=== PATIENT | female | born 1965 | race Caucasian/White ===

== ENCOUNTER 2016-10-04 16:15 | Emergency (ER) | payer OTHER ==
--- NOTE | 2016-10-04 19:04 | ED ---
General Adult HPI - General Chief complaint: Extremity Problem,Nontraumatic Stated complaint: leg pain Time Seen by Provider: 10/04/16 18:52 Source: patient, RN notes reviewed Mode of arrival: ambulatory Limitations: no limitations - History of Present Illness Initial comments: Chief complaint history of present illness a 51-year-old female reports that twice over the last week she had little twinges of discomfort to her left mid calf area. Today while walking down the street she said she felt and heard a snap and complains of pain between both gastroc heads in the mid left calf. No swelling no ecchymosis. No pain with dorsiflexion of the ankle. No ecchymosis neurovascular status was intact no pain to the knee. - Related Data Home Medications Medication Instructions Recorded Confirmed Loratadine [Claritin] 10 mg PO DAILY 01/07/16 10/04/16 Pantoprazole [Protonix] 40 mg PO DAILY 01/07/16 10/04/16 buPROPion SR [Wellbutrin Sr] 150 mg PO BID 01/07/16 10/04/16 Albuterol Sulfate [Proair Hfa] 1 - 2 puff INHALATION Q6H PRN 01/19/16 10/04/16 Ibuprofen [Motrin] 800 mg PO TID PRN 01/19/16 10/04/16 PARoxetine [Paxil] 20 mg PO DAILY 08/25/16 10/04/16 traZODone HCL 200 mg PO HS 08/25/16 10/04/16 Previous Rx's Medication Instructions Recorded Ibuprofen [Motrin] 600 mg PO Q6HR PRN #20 tab 10/04/16 Allergies Allergy/AdvReac Type Severity Reaction Status Date / Time captopril Allergy Rash/Hives Verified 10/04/16 19:26 metoprolol Allergy Rash/Hives Verified 10/04/16 19:26 Review of Systems ROS Statement: Those systems with pertinent positive or pertinent negative responses have been documented in the HPI. Review of systems denying any headache chest pain shows breath GI/ problems. Only that as noted in the chief complaint. All systems were otherwise reviewed. Past medical problems GERD, pneumonia in the past varicose veins and COPD. The patient's surgeries surgery as well as right carpal tunnel to the extraction. Family history includes cancers of: 1 esophagus and ostomy. Diabetes. Patient has ALLERGIES to captopril and metoprolol. She states she no longer takes any medications for high blood pressure. The patient does smoke strongly encouraged stop denies alcohol use patient states she's been free of alcohol for 1 year states she's not alcoholic. ROS Other: All systems not noted in ROS Statement are negative. Past Medical History Past Medical History: COPD, GERD/Reflux, Pneumonia Additional Past Medical History / Comment(s): varicose veins, History of Any Multi-Drug Resistant Organisms: None Reported Past Surgical History: No Surgical Hx Reported Additional Past Surgical History / Comment(s): oral surgery Past Anesthesia/Blood Transfusion Reactions: Motion Sickness Past Psychological History: Anxiety, Depression Smoking Status: Current every day smoker Past Alcohol Use History: None Reported Additional Past Alcohol Use History / Comment(s): smokes 1 1/2 PPD since age 18 Past Drug Use History: None Reported - Past Family History Brother(s) Family Medical History: Cancer Father Family Medical History: Cancer General Exam - General Exam Comments Initial Comments: General: The patient is awake and alert, complaining of pain to her left mid calf. Vital signs are temperature 90.0 pulse 64 respiratory rate 18 pulse ox 99% room air blood pressure 139/64. Elevated systolic noted patient will be referred back to her family physician in next 1-2 weeks. Eye: Pupils are equal, , extra-ocular movements are intact; there is normal conjunctiva bilaterally. No signs of icterus. Ears, nose, mouth and throat: There are moist mucous membranes Neck: The neck is supple, there is no tenderness Cardiovascular: There is a regular rate and rhythm. No murmur, rub or gallop is appreciated. Respiratory: Lungs are clear to auscultation, respirations are non-labored, breath sounds are equal. No wheezes, stridor, rales, or rhonchi. Back: There is no tenderness to palpation in the midline. There is no obvious deformity. Musculoskeletal: All extremities normal except for discomfort to the mid left calf and negative Homans sign. No swelling or palpable lumps or irregularities. Achilles tendon is intact without pain. No vascular status of foot is intact. No pain with manipulation of the knee. No evidence of Jordan's cyst. Neurological: No neuro deficits Skin: No ecchymosis Limitations: no limitations Course Vital Signs 10/04/16 10/04/16 16:52 19:19 Temperature 98.0 F 97.5 F L Pulse Rate 64 84 Respiratory 18 16 Rate Blood Pressure 139/64 127/72 O2 Sat by Pulse 99 98 Oximetry Medical Decision Making - Medical Decision Making Tray of the left tib-fib negative for any acute bony irregularity. There is a few small healed chips off the distal fibula. Awaiting radiologist's final impression. The patient will be placed on ibuprofen for pain told ice the area follow-up with family physician as needed. Off work tonight Disposition Clinical Impression: Sprain of left lower leg Disposition: HOME SELF-CARE Condition: Good Instructions: Sprain (ED) Additional Instructions: Ice elevate, ibuprofen for pain Prescriptions: Ibuprofen [Motrin] 600 mg PO Q6HR PRN #20 tab PRN Reason: Pain Time of Disposition: 20:12
--- NOTE | 2016-10-04 19:18 | XR ---
EXAMINATION TYPE: XR tibia fibula LT DATE OF EXAM: 10/04/2016 7:14 PM CLINICAL HISTORY: pain TECHNIQUE: AP and lateral images of the left tibia and fibula are obtained. COMPARISON: None. FINDINGS: There is no acute fracture/dislocation evident. The joint spaces appear within normal lópez its. The overlying soft tissue appears unremarkable. IMPRESSION: There is no acute fracture or dislocation seen. ICD 10 NO FRACTURE, INITIAL EVALUATION
[2016-10-04 20:23] VITALS: BP 160/79; PULSE 58; RESP 18; TEMP 97.9
== END 2016-10-04 20:23 | disposition home or self-care (01) ==
LOC: EC 16:15
DX: S86.812A Strain of other muscle(s) and tendon(s) at lower leg level, left leg, initial encounter (principal); K21.9 Gastro-esophageal reflux disease without esophagitis; F32.9 Major depressive disorder, single episode, unspecified; F41.9 Anxiety disorder, unspecified; J44.9 Chronic obstructive pulmonary disease, unspecified; F17.200 Nicotine dependence, unspecified, uncomplicated; X58.XXXA Exposure to other specified factors, initial encounter; Y93.01 Activity, walking, marching and hiking; Y92.410 Unspecified street and highway as the place of occurrence of the external cause; Z88.8 Allergy status to other drugs, medicaments and biological substances; Z79.899 Other long term (current) drug therapy
CPT/HCPCS: 99283

== ENCOUNTER 2016-10-09 13:50 | Emergency (ER) | payer OTHER ==
[2016-10-09 14:25] VITALS: BP 149/67; PULSE 54; RESP 18; TEMP 98.8
--- NOTE | 2016-10-09 15:27 | ED ---
General Adult HPI - General Chief complaint: Extremity Injury, Lower Stated complaint: Leg Pain Time Seen by Provider: 10/09/16 14:30 Source: patient, RN notes reviewed Mode of arrival: ambulatory Limitations: no limitations - History of Present Illness Initial comments: Patient is a 51-year-old feel presenting to the with chief complaint of left calf pain. Patient reports that she was seen in the proximally one week ago and was told to rest, ice, and elevate leg after she received x-rays which were negative. Patient reports that she hasn't been taking anti-inflammatory medications however she still notices increased pain. Patient reports that the pain is worse with plantar and dorsiflexion. She states that all her pain started to occur after she twisted her leg and felt a twinge since then. Patient denies any specific point of tenderness just diffuse calf pain. She also reports she's noticed some swelling over both extremities but slightly more in the left calf. She denies any history of blood clots. She denies any chest pain or shortness of breath. She denies any redness to the leg. She states that she is able to ambulate however she notices the pain is worse when she has to raise up on her toes.Patient denies any recent fever, chills, shortness of breath, chest pain, back pain, abdominal pain, nausea vomiting, numbness or tingling, dysuria or hematuria, constipation or diarrhea, headaches or visual changes, or any other current symptoms - Related Data Home Medications Medication Instructions Recorded Confirmed Loratadine [Claritin] 10 mg PO DAILY 01/07/16 10/09/16 Pantoprazole [Protonix] 40 mg PO DAILY 01/07/16 10/09/16 buPROPion SR [Wellbutrin Sr] 150 mg PO BID 01/07/16 10/09/16 Albuterol Sulfate [Proair Hfa] 1 - 2 puff INHALATION RT-Q6H PRN 01/19/16 Ibuprofen [Motrin] 800 mg PO Q8H PRN 01/19/16 10/09/16 PARoxetine [Paxil] 20 mg PO DAILY 08/25/16 10/09/16 traZODone HCL 200 mg PO HS 08/25/16 10/09/16 Previous Rx's Medication Instructions Recorded Naproxen 500 mg PO Q12HR #15 tab 10/09/16 Allergies Allergy/AdvReac Type Severity Reaction Status Date / Time captopril Allergy Rash/Hives Verified 10/09/16 14:47 metoprolol Allergy Rash/Hives Verified 10/09/16 14:47 Review of Systems ROS Statement: Those systems with pertinent positive or pertinent negative responses have been documented in the HPI. ROS Other: All systems not noted in ROS Statement are negative. Past Medical History Past Medical History: COPD, GERD/Reflux, Pneumonia Additional Past Medical History / Comment(s): varicose veins, History of Any Multi-Drug Resistant Organisms: None Reported Past Surgical History: No Surgical Hx Reported, Orthopedic Surgery Additional Past Surgical History / Comment(s): oral surgery carpel tunnel surg Past Anesthesia/Blood Transfusion Reactions: Motion Sickness Past Psychological History: Anxiety, Depression Smoking Status: Current every day smoker Past Alcohol Use History: None Reported Additional Past Alcohol Use History / Comment(s): smokes 1 1/2 PPD since age 18 Past Drug Use History: None Reported - Past Family History Brother(s) Family Medical History: Cancer Father Family Medical History: Cancer General Exam - General Exam Comments Initial Comments: She is a pleasant 51-year-old female. She is on appear to be any acute distress. Limitations: no limitations General appearance: alert, in no apparent distress Head exam: Present: atraumatic, normocephalic, normal inspection Eye exam: Present: normal appearance, PERRL, EOMI. Absent: scleral icterus, conjunctival injection, periorbital swelling ENT exam: Present: normal exam, mucous membranes moist Neck exam: Present: normal inspection. Absent: tenderness, meningismus, lymphadenopathy Respiratory exam: Present: normal lung sounds bilaterally. Absent: respiratory distress, wheezes, rales, rhonchi, stridor Cardiovascular Exam: Present: regular rate, normal rhythm, normal heart sounds. Absent: systolic murmur, diastolic murmur, rubs, gallop, clicks GI/Abdominal exam: Present: soft, normal bowel sounds. Absent: distended, tenderness, guarding, rebound, rigid Extremities exam: Present: normal inspection, full ROM, normal capillary refill. Absent: tenderness, pedal edema, joint swelling, calf tenderness Left Upper Leg exam: Present: normal inspection, full ROM Knee exam: Present: normal inspection, full ROM Lower Leg exam: Present: normal inspection, full ROM, tenderness (Patient reports tenderness over the gastrocnemius muscle. ) Back exam: Present: normal inspection Course Vital Signs 10/09/16 14:21 Temperature 98.8 F Pulse Rate 54 L Respiratory 18 Rate Blood Pressure 149/67 O2 Sat by Pulse 97 Oximetry Medical Decision Making - Medical Decision Making Louis is a 51-year-old female presenting to the with chief complaint of left calf pain for approximately one week after she finished that after twisting it on a curb. X-rays were done at that time and showed no acute fracture abnormality. Ultrasound was done today given patient stated that she has some increased swelling over her leg. Ultrasound is negative for DVT. Patient has been instructed to follow-up with orthopedic physician. Patient instructed to rest, ice, and elevate extremity. To wear compression stockings as well. Patient understands treatment plan will comply. Return parameters were discussed. - Radiology Data Radiology results: report reviewed Her son was negative for DVT. There is evidence of small fluid collection over the calf which would be considered for an MRI follow-up. Disposition Clinical Impression: Calf pain, Sprain of left lower leg Disposition: HOME SELF-CARE Condition: Good Instructions: Leg Sprain (ED) Additional Instructions: Patient instructed to keep leg and Alvaro wrap as well as icing. Compress, elevate the extremity. Do passive stretching. Follow-up with orthopedic if symptoms continue to persist. Return to the [facility] if any alarming signs or symptoms occur. Prescriptions: Naproxen 500 mg PO Q12HR #15 tab Referrals: Kelle Baltazar DO [Primary Care Provider] - 1-2 days Garth Merchant MD [STAFF PHYSICIAN] - 1-2 days Time of Disposition: 15:40
--- NOTE | 2016-10-09 15:34 | US ---
EXAMINATION TYPE: US venous Doppler duplex LE LT DATE OF EXAM: 10/09/2016 3:14 PM COMPARISON: US on PACS CLINICAL HISTORY: Pain x 1 week at left medial calf after running across street and felt pulling sens ation. SIDE PERFORMED: Left VESSELS IMAGED: Common Femoral Vein Deep Femoral Vein Greater Saphenous Vein * Femoral Vein Popliteal Vein Small Saphenous Vein * Proximal Calf Veins (* superficial vessels) Findings: Left Leg: Negative for DVT. Fluid area = 1.9 x 0.9 x 0.3cm is noted medial mid calf at muscle level at patient's c/o pain IMPRESSION: 1. No evidence of DVT. 2. Small fluid collection medial aspect of the calf. Finding nonspecific consider MRI follow-up.
== END 2016-10-09 16:06 | disposition home or self-care (01) ==
LOC: EC 13:50
DX: S86.812D Strain of other muscle(s) and tendon(s) at lower leg level, left leg, subsequent encounter (principal); M79.1 Myalgia; X50.1XXD Overexertion from prolonged static or awkward postures, subsequent encounter; J44.9 Chronic obstructive pulmonary disease, unspecified; K21.9 Gastro-esophageal reflux disease without esophagitis; M79.89 Other specified soft tissue disorders; Z79.899 Other long term (current) drug therapy; Z88.8 Allergy status to other drugs, medicaments and biological substances; F17.210 Nicotine dependence, cigarettes, uncomplicated
CPT/HCPCS: 99283

== ENCOUNTER 2016-10-30 12:17 | Day surgery (SDC) | payer OTHER ==
[2016-10-25 11:59] VITALS: BMI 29.2
[~2016-10-30 12:17] MED LIST: FAMOTIDINE 20 MG/2 ML VIAL IV PRN; HYDROmorphone 1 MG/ML 1 ML SYRINGE IVP PRN; LACTATED RINGERS 1,000 ML IV SCH; LIDOCAINE 1% 20 ML VIAL (10MG/ML) FOR IV START INTRADERMA PRN; MIDAZOLAM 2 MG/2 ML VIAL IV PRN; ONDANSETRON 4 MG/2 ML VIAL IVP PRN; Pre Op ABX Message 1 EACH MISC MISCELLANE ONE
[2016-10-30 13:21] VITALS: RESP 16; TEMP 98.2
[2016-10-30] MEDS ORDERED: LIDOCAINE 1% INJ 10MG/ML (20 ML MDV) ONE (14:45)
[2016-10-30] MEDS ORDERED: PROPOFOL 10 MG/ML 20 ML VIAL IV ONE (14:45)
[2016-10-30] MEDS ORDERED: MIDAZOLAM 2 MG/2 ML VIAL ONE (14:45)
[2016-10-30] MEDS ORDERED: fentaNYL (PF) 50 MCG/ML 2 ML AMP ONE (14:45)
[2016-10-30] MEDS ORDERED: LIDOCAINE 2% INJ 20 MG/ML SQ ONE (14:54)
[2016-10-30] MEDS ORDERED: BUPIVACAINE (PF) 0.5% 30 ML VIAL SQ ONE (14:54)
[2016-10-30 15:36] VITALS: BP 111/74; PULSE 57
--- NOTE | 2016-10-30 19:28 | OP ---
DATE OF SERVICE: 10/30/2016 SURGEON: GUS QUESADA DO SAUSAGE MIXER: PREOPERATIVE DIAGNOSIS: Left carpal tunnel syndrome. POSTOPERATIVE DIAGNOSIS: Left carpal tunnel syndrome. OPERATION: Left carpal tunnel release. ANESTHESIA: ESTIMATED BLOOD LOSS: SPECIMENS REMOVED: COMPLICATIONS: OPERATIVE FINDINGS: PROCEDURE: The patient is taken to the operative suite where the procedure was done local with sedation. A light amount of IV sedation was provided by the department of anesthesia but the patient was kept alert enough to indicate any ill effect in the hand or fingers during the procedure. Two endoscopic portals were prepared and anesthetized in the usual way. The proximal portal was approximately 1 cm proximal to the distal wrist crease and just ulnar to the midline. The distal portal was longitudinal, located at the edge of the transverse carpal ligament, using the usual anatomical landmarks. Both incisions were anesthetized with 2% Xylocaine and 0.5% Marcaine, both without Epinephrine. The proximal incision was opened first, retractors were used for exposure and for hemostasis. Blunt dissection was taken through the subcutaneous tissue until the forearm fascia was identified. This was then incised longitudinally. By applying volar retraction at the distal aspect of the incision, the potential space beneath the forearm fascia and the bursa containing the flexor tensions was easily identified. A blunt probe was then inserted into this space down into the transverse carpal ligament. The undersurface of the transverse carpal ligament was palpated, and by running the dissector along its undersurface, a washboard effect could be palpated, insuring the proper position had been obtained. At this point, the distal incision was opened. Dissection was taken bluntly through the subcutaneous tissue to the palmar fascia. This is incised longitudinally, and the edge of the transverse carpal ligament was identified under direct vision. The spatula dissector was then brought through the distal incision to ensure the entire transverse carpal ligament was identified and the proper dissection planes had been attained. A trocar and slotted cannula assembly are inserted into the proximal incision. The hand was placed on the tenorio in an extended position. Retractors were placed into the distal incision so the trocar assembly could then be brought out through the distal incision under direct visualization. The trocar was removed leaving the slotted cannula. The endoscope then inserted in the proximal incision and the light and the focus were adjusted. Using a variety of knives, the transverse carpal ligament was released under direct vision. Complete release of the transverse carpal ligament was confirmed by a variety of means. First of all, the edges could be seen to directly retract apart as they exist under tension. In addition, the fat could be seen to fall into the cannula. Additionally, a probe could be palpated beneath the skin and the lights in the scope could be seen much more clearly beneath the skin. The trocar was reinserted into the slotted cannula and the assembly was removed. The hand was then taken out of the hand tenorio. The patient was asked to put the fingers through a full range of motion. The patient was asked of any numbness in the fingers and none was noted. Both incisions were closed with a single suture of 6-0 nylon. Soft, bulky dressing was applied and the patient was taken to the recovery room in satisfactory condition.
== END 2016-10-30 15:51 | disposition home or self-care (01) ==
LOC: OR 12:17
PROVIDERS: ATTEND Orthopaedic Surgery Hand Surgery
DX: G56.02 Carpal tunnel syndrome, left upper limb (principal); J44.9 Chronic obstructive pulmonary disease, unspecified; K21.9 Gastro-esophageal reflux disease without esophagitis; F32.9 Major depressive disorder, single episode, unspecified; Z79.899 Other long term (current) drug therapy; Z88.8 Allergy status to other drugs, medicaments and biological substances
CPT/HCPCS: 81025; 64721; J2001 ×2; J2250; J2405; J3010; J2704; 99152; 99153

== ENCOUNTER 2018-06-24 15:02 | Observation (INO) | payer BC ==
[2018-06-24] MEDS ORDERED: SODIUM CHLORIDE 0.9% 1,000 ML IV STA (15:29)
[2018-06-24 15:50] LABS: Basophils # (A) 0.1 k/uL (0-0.2); Basophils % (A) 1 %; Eosinophils # (A) 0.7 k/uL (0-0.7); Eosinophils % (A) 8 %; HCT 39.4 % (34.0-46.0); HGB 13.2 gm/dL (11.4-16.0); Lymphocytes # (A) 1.1 k/uL (1.0-4.8); Lymphocytes % (A) 14 %; MCH 29.1 pg (25.0-35.0); MCHC 33.4 g/dL (31.0-37.0); MCV 87.2 fL (80.0-100.0); Mean Platelet Volume 6.9; Monocytes # (A) 0.5 k/uL (0-1.0); Monocytes % (A) 5 %; Neutrophils # (A) 5.9 k/uL (1.3-7.7); Neutrophils % (A) 71 %; Platelet Count 314 k/uL (150-450); RBC 4.52 m/uL (3.80-5.40); RDW 13.8 % (11.5-15.5); WBC 8.3 k/uL (3.8-10.6)
[2018-06-24 16:01] LABS: ALT 27 U/L (9-52); AST 20 U/L (14-36); Albumin 3.7 g/dL (3.5-5.0); Alkaline Phosphatase 111 U/L (38-126); Anion Gap 9 mmol/L; Blood Urea Nitrogen 11 mg/dL (7-17); Calcium 9.5 mg/dL (8.4-10.2); Carbon Dioxide 26 mmol/L (22-30); Chloride 104 mmol/L (98-107); Glucose 108 mg/dL (74-99); Potassium 4.1 mmol/L (3.5-5.1); Sodium 139 mmol/L (137-145); Total Bilirubin 0.5 mg/dL (0.2-1.3); Total Protein 6.5 g/dL (6.3-8.2)
--- NOTE | 2018-06-24 16:04 | ED ---
General Adult HPI - General Source: patient, EMS, RN notes reviewed Mode of arrival: ambulatory Limitations: no limitations <Darin Valerio - Last Filed: 06/24/18 17:00> <Martinez Duggan - Last Filed: 06/24/18 17:19> - General Chief complaint: Weakness Stated complaint: Weakness Time Seen by Provider: 06/24/18 15:12 - History of Present Illness Initial comments: Patient's a 52-year-old female presented to the emergency room today with a chief complaint of numbness to the left side of the face. Patient states that she first noticed symptoms 2 days ago. She states that she was going to donate plasma and the nurse there told her that look like she had some facial droop on the left side. Patient states that she had some numbness on the side still present over the last 2 days. States that she's noticed that there has been more difficulty when she was chewing on this left side and even talking she feels like her jaw goes this way. Patient states she noticed that she had a hard time when she was trying to drink water. He she denies any other complaints or symptoms. Patient denies any recent fever, chills, shortness of breath, chest pain, back pain, abdominal pain, nausea or vomiting, headaches or visual changes, or any other complaints. (Darin Valerio) - Related Data Home Medications Medication Instructions Recorded Confirmed buPROPion SR [Wellbutrin Sr] 150 mg PO BID 01/07/16 06/24/18 Ibuprofen [Motrin] 800 mg PO Q8H PRN 01/19/16 06/24/18 PARoxetine [Paxil] 20 mg PO DAILY 08/25/16 06/24/18 Albuterol Sulfate [Proair Hfa] 1 - 2 puff INHALATION Q6HR PRN 06/24/18 06/24/18 Loratadine [Claritin] 10 mg PO DAILY 06/24/18 06/24/18 Pantoprazole Sodium [Protonix] 20 mg PO DAILY 06/24/18 06/24/18 traMADol HCL [Ultram] 50 mg PO Q4-6H 06/24/18 06/24/18 traZODone HCL [Desyrel] 50 mg PO HS 06/24/18 06/24/18 Allergies Allergy/AdvReac Type Severity Reaction Status Date / Time baclofen Allergy Unknown Verified 06/24/18 15:20 captopril Allergy Rash/Hives Verified 06/24/18 15:20 metoprolol Allergy Rash/Hives Verified 06/24/18 15:20 Review of Systems ROS Other: All systems not noted in ROS Statement are negative. <Darin Valerio - Last Filed: 06/24/18 17:00> ROS Other: All systems not noted in ROS Statement are negative. <Martinez Duggan - Last Filed: 06/24/18 17:19> ROS Statement: Those systems with pertinent positive or pertinent negative responses have been documented in the HPI. Past Medical History Past Medical History: COPD, GERD/Reflux, Pneumonia Additional Past Medical History / Comment(s): Hx varicose veins, pneumonia and bronchitis 2015, March or April. Hx bilateral carpal tunnel. History of Any Multi-Drug Resistant Organisms: None Reported Past Surgical History: Orthopedic Surgery Additional Past Surgical History / Comment(s): oral surgery carpel tunnel surg Past Anesthesia/Blood Transfusion Reactions: No Reported Reaction Past Psychological History: Anxiety, Depression Smoking Status: Current every day smoker Past Alcohol Use History: None Reported Past Drug Use History: None Reported - Past Family History Brother(s) Family Medical History: Cancer Additional Family Medical History / Comment(s): Skin Cancer Father Family Medical History: Cancer Additional Family Medical History / Comment(s): Prostate Cancer Mother Family Medical History: Diabetes Mellitus <Darin Valerio - Last Filed: 06/24/18 17:00> General Exam Limitations: no limitations <Darin Valerio - Last Filed: 06/24/18 17:00> <Martinez Duggan - Last Filed: 06/24/18 17:19> - General Exam Comments Initial Comments: General: The patient is awake and alert, in no distress, and does not appear acutely ill. Eye: Pupils are equal, round and reactive to light. Extra-ocular movements are intact. No nystagmus. There is normal conjunctiva bilaterally. No signs of icterus. Ears, nose, mouth and throat: There are moist mucous membranes and no oral lesions. Neck: The neck is supple, there is no tenderness or JVD. Cardiovascular: There is a regular rate and rhythm. No murmur, rub or gallop is appreciated. Respiratory: Lungs are clear to auscultation, respirations are non-labored, breath sounds are equal. No wheezes, stridor, rales, or rhonchi. Musculoskeletal: Normal ROM, no tenderness. Sensation intact. Strength 5/5. Pulses equal bilaterally 2+. Neurological: A&O x 3. Patient does have asymmetrical smile, puffing out cheeks. Patient is able to close eyes tightly and raise eyebrows. Sensations are intact. There are no obvious motor or sensory deficits. Coordination appears grossly intact. Speech is normal. Skin: Skin is warm and dry and no rashes or lesions are noted. Psychiatric: Cooperative, appropriate mood & affect, normal judgment. (Darin Valerio) Vital Signs 06/24/18 06/24/18 06/24/18 15:08 16:00 16:50 Temperature 98.5 F Pulse Rate 90 77 83 Respiratory 18 18 18 Rate Blood Pressure 125/75 108/68 125/71 O2 Sat by Pulse 97 97 97 Oximetry EKG Findings - EKG Comments: EKG Findings:: EKG performed at 1604: Shows normal sinus rhythm at 76 beats per minute. PA interval 156. QRS 76. QT/QTC 390/438. No acute ST changes. <Darin Valerio - Last Filed: 06/24/18 17:00> Medical Decision Making - Lab Data Result diagrams: 06/24/18 15:41 06/24/18 15:41 <Darin Valerio - Last Filed: 06/24/18 17:00> - Lab Data Result diagrams: 06/24/18 15:41 06/24/18 15:41 - Radiology Data Radiology results: report reviewed (Computed tomography scan of the brain reveals no acute abnormality.) <Martinez Duggan - Last Filed: 06/24/18 17:19> - Medical Decision Making Patient reevaluated by myself, Dr. Duggan. Patient resting comfortably in bed. Patient does have left-sided facial droop. I cannot rule out minimal delay and closing of the left eyelid. Patient does however have good strength of the forehead muscles. Patient is able to fully shut the eye without any weakness. Extraocular muscles intact. No extremity weakness. No loss of sensation.. Nose test within normal limits bilaterally. Patient updated on results and plan. Case was discussed in detail with Dr. Alfredo, who will admit for Dr. Blackman and consult neurology. (Martinez Duggan) - Lab Data Lab Results 06/24/18 06/24/18 06/24/18 Range/Units 15:41 15:41 15:41 WBC 8.3 (3.8-10.6) k/uL RBC 4.52 (3.80-5.40) m/uL Hgb 13.2 (11.4-16.0) gm/dL Hct 39.4 (34.0-46.0) % MCV 87.2 (80.0-100.0) fL MCH 29.1 (25.0-35.0) pg MCHC 33.4 (31.0-37.0) g/dL RDW 13.8 (11.5-15.5) % Plt Count 314 (150-450) k/uL Neutrophils % 71 % Lymphocytes % 14 % Monocytes % 5 % Eosinophils % 8 % Basophils % 1 % Neutrophils # 5.9 (1.3-7.7) k/uL Lymphocytes # 1.1 (1.0-4.8) k/uL Monocytes # 0.5 (0-1.0) k/uL Eosinophils # 0.7 (0-0.7) k/uL Basophils # 0.1 (0-0.2) k/uL PT (9.0-12.0) sec INR (<1.2) APTT (22.0-30.0) sec Sodium 139 (137-145) mmol/L Potassium 4.1 (3.5-5.1) mmol/L Chloride 104 (98-107) mmol/L Carbon Dioxide 26 (22-30) mmol/L Anion Gap 9 mmol/L BUN 11 (7-17) mg/dL Creatinine 0.83 (0.52-1.04) mg/dL Est GFR (CKD-EPI)AfAm >90 (>60 ml/min/1.73 sqM) Est GFR (CKD-EPI)NonAf 83 (>60 ml/min/1.73 sqM) Glucose 108 H (74-99) mg/dL Calcium 9.5 (8.4-10.2) mg/dL Total Bilirubin 0.5 (0.2-1.3) mg/dL AST 20 (14-36) U/L ALT 27 (9-52) U/L Alkaline Phosphatase 111 (38-126) U/L Total Creatine Kinase 50 (30-135) U/L CK-MB (CK-2) 1.1 (0.0-2.4) ng/mL CK-MB (CK-2) Rel Index 2.2 Troponin I 0.077 H* (0.000-0.034) ng/mL Total Protein 6.5 (6.3-8.2) g/dL Albumin 3.7 (3.5-5.0) g/dL 06/24/18 Range/Units 15:41 WBC (3.8-10.6) k/uL RBC (3.80-5.40) m/uL Hgb (11.4-16.0) gm/dL Hct (34.0-46.0) % MCV (80.0-100.0) fL MCH (25.0-35.0) pg MCHC (31.0-37.0) g/dL RDW (11.5-15.5) % Plt Count (150-450) k/uL Neutrophils % % Lymphocytes % % Monocytes % % Eosinophils % % Basophils % % Neutrophils # (1.3-7.7) k/uL Lymphocytes # (1.0-4.8) k/uL Monocytes # (0-1.0) k/uL Eosinophils # (0-0.7) k/uL Basophils # (0-0.2) k/uL PT 10.0 (9.0-12.0) sec INR 1.0 (<1.2) APTT 26.0 (22.0-30.0) sec Sodium (137-145) mmol/L Potassium (3.5-5.1) mmol/L Chloride (98-107) mmol/L Carbon Dioxide (22-30) mmol/L Anion Gap mmol/L BUN (7-17) mg/dL Creatinine (0.52-1.04) mg/dL Est GFR (CKD-EPI)AfAm (>60 ml/min/1.73 sqM) Est GFR (CKD-EPI)NonAf (>60 ml/min/1.73 sqM) Glucose (74-99) mg/dL Calcium (8.4-10.2) mg/dL Total Bilirubin (0.2-1.3) mg/dL AST (14-36) U/L ALT (9-52) U/L Alkaline Phosphatase (38-126) U/L Total Creatine Kinase (30-135) U/L CK-MB (CK-2) (0.0-2.4) ng/mL CK-MB (CK-2) Rel Index Troponin I (0.000-0.034) ng/mL Total Protein (6.3-8.2) g/dL Albumin (3.5-5.0) g/dL Disposition <Darin Valerio - Last Filed: 06/24/18 17:00> Is patient prescribed a controlled substance at d/c from ED?: No Decision Time: 17:16 <Martinez Duggan - Last Filed: 06/24/18 17:19> Clinical Impression: TIA (transient ischemic attack) Disposition: ADMITTED IP TO THIS HOSP Referrals: Michelle Blackman MD [Primary Care Provider] - 1-2 days
--- NOTE | 2018-06-24 16:06 | CT ---
EXAMINATION TYPE: CT brain wo con DATE OF EXAM: 06/24/2018 COMPARISON: None INDICATION: Left sided facial numbness DLP: 1054.2 mGycm, Automated exposure control for dose reduction was used. CONTRAST: None CT of the brain is performed utilizing 3 mm thick sections through the posterior fossa and 3 mm thick sections through the remaining calvarium. Study is performed within 24 hours of arrival to the hosp ital. No abnormal hyperdensity is present to suggest an acute intracranial hemorrhage. No mass lesion is evident. No acute infarcts are evident. Ventricles and sulci are appropriate for the patient age. Paranasal sinuses and mastoid air cells within the [id number] are clear. Mild hyperostosis frontalis internus is present. IMPRESSIONS: 1. No acute intracranial process.
[2018-06-24 16:16] LABS: Creatine Kinase MB 1.1 ng/mL (0.0-2.4)
[2018-06-24 16:20] LABS: Troponin I 0.077 ng/mL (0.000-0.034)
[2018-06-24] MEDS ORDERED: ASPIRIN 81 MG PO STA (16:35)
[2018-06-24] MEDS ORDERED: ASPIRIN 325 MG TAB PO STA (17:19)
[2018-06-24] MEDS ORDERED: ALBUTEROL NEBULIZED 2.5 MG/3 ML INHALATION PRN (17:41)
[2018-06-24] MEDS ORDERED: IBUPROFEN 800 MG TAB PO PRN (17:41)
[2018-06-24] MEDS ORDERED: TEMAZEPAM 15 MG CAP PO PRN (17:42)
[2018-06-24] MEDS ORDERED: ALPRAZolam 0.25 MG TAB PO PRN (17:42)
--- NOTE | 2018-06-24 18:20 | HP ---
HISTORY AND PHYSICAL DATE OF SERVICE: 06/24/2018 CHIEF COMPLAINTS: Weakness and left-sided facial weakness. HISTORY OF PRESENT ILLNESS: This 52-year-old woman with a past medical history of COPD, GERD, pneumonia, history of varicose veins, DJD, anxiety, depression, being followed by Dr. Blackman in the outpatient setting, was complaining of left-sided facial weakness for the last 3 days. The patient was going to donate plasma, and the nurse noted some deviation of the face. The chewing was also weak on the left side and the patient came to [facility]. Initially a CT scan did not show any acute abnormality. However, the troponins were found to be 0.077. The patient was admitted for further evaluation. There is no history of any chest pain, palpitations. No history of headache, loss of consciousness, seizures. PAST MEDICAL HISTORY: 1. History of COPD. 2. GERD. 3. Pneumonia. 4. History of varicose veins. HOME MEDICATIONS: 1. Desyrel 50 mg at bedtime. 2. Ultram 50 mg q.4 p.r.n. 3. Wellbutrin XR 150 mg p.o. b.i.d. 4. Protonix 20 mg daily. 5. Paxil 20 mg p.o. daily. 6. Claritin 10 mg p.o. daily. 7. Motrin 800 mg q.8 p.r.n. 8. ProAir 1-2 puffs q.6 p.r.n. ALLERGIES: 1. BACLOFEN. 2. CAPTOPRIL. 3. METOPROLOL. FAMILY HISTORY: History of skin cancer in the family. SOCIAL HISTORY: History of smoking on a daily basis. No history alcohol intake. REVIEW OF SYSTEMS: ENT: As mentioned earlier. CARDIOVASCULAR SYSTEM: No angina, palpitations. RESPIRATORY SYSTEM: No cough, hemoptysis. GI: No nausea, vomiting. : No dysuria or retention. NERVOUS SYSTEM: As mentioned earlier. ALLERGY/IMMUNOLOGY: No asthma, hayfever. MUSCULOSKELETAL: As mentioned earlier. HEMATOLOGY/ONCOLOGY: No history of anemia. ENDOCRINE: No history of diabetes, hypothyroidism. CONSTITUTIONAL: As mentioned earlier. DERMATOLOGY: Negative. RHEUMATOLOGY: Negative. PSYCHIATRY: As mentioned earlier. PHYSICAL EXAMINATION: Patient is alert, oriented x3. Pulse 83, blood pressure 125/71, respiration 18, temperature 98.4, pulse ox 97% on room air. HEENT: Conjunctivae normal. Oral mucosa moist. NECK: No jugular venous distention. No carotid bruit. No lymph node enlargement. CARDIOVASCULAR SYSTEM: S1, S2 muffled. No S3. No S4. RESPIRATORY SYSTEM: Breath sounds diminished at the bases. No rhonchi. No crackles. ABDOMEN: Soft, non-tender. No mass palpable. LEGS: No edema. No swelling. NERVOUS SYSTEM: Higher functions as mentioned earlier. Minimal facial deviation on the left side present. Closure of the eyes weak on the left side. Minimal facial deviation at angle of the mouth also present. No other focal motor or sensory deficits. No signs of cerebellar dysfunction. No sensory abnormality. JOINTS: No active deforming arthropathy. SKIN: No ulcer, rash or bleeding. LABS: CBC within normal limits. Glucose 108. Troponin 0.077. ASSESSMENT: 1. Weakness of the left side of the face, possible acute transient ischemic attack. 2. Troponin 0.077; rule out acute [id number]-elevation myocardial infarction. 3. Chronic obstructive pulmonary disease. 4. Gastroesophageal reflux disease. 5. History of pneumonia. 6. History of bronchitis. 7. History of bilateral carpal tunnel syndrome. 8. Anxiety, depression. 9. History of nicotine dependence. RECOMMENDATIONS AND DISCUSSION: In this 52-year-old woman who presented with multiple medical issues, we will monitor the patient closely, continue the current medications, continue symptomatic treatment. Neurovascular workup. I would also recommend cardiology consultation. The prognosis is guarded because of multiple complex medical issues. Smoking cessation has been advised. Will closely follow. Antiplatelet agents. Further recommendations to follow. A copy of this dictation is being forwarded to Dr. Blackman, who is the primary physician. MMODL / IJN: [id number] /
[2018-06-24 18:45] LABS: Appearance,Urine Cloudy (Clear); Bilirubin,Urine Negative (Negative); Blood,Urine Negative (Negative); Color,Urine Yellow; Glucose,Urine (UA) Negative (Negative); Hyaline Casts,Urine 3 /lpf (0-2); Ketones,Urine Negative (Negative); Leukocyte Esterase,Urine Moderate (Negative); Mucus,Urine Rare /hpf; Nitrite,Urine Negative (Negative); PH, Urine 6.5 (5.0-8.0); Protein,Urine Negative (Negative); RBC,Urine 2 /hpf (0-5); Specific Gravity,Urine 1.008 (1.001-1.035); Squamous Epithelial Cell,Urine 4 /hpf (0-4); Urobilinogen,Urine <2.0 mg/dL (<2.0); WBC,Urine 6 /hpf (0-5)
[2018-06-24 18:50] LABS: Amphetamine Screen,Urine Not Detected (NotDetected); Barbiturate Screen,Urine Not Detected (NotDetected); Benzodiazepines Screen,Urine Not Detected (NotDetected); Cocaine Screen,Urine Not Detected (NotDetected); Methadone Screen, Urine Not Detected (NotDetected); Opiate Screen,Urine Not Detected (NotDetected); Oxycodone Screen, Urine Not Detected (NotDetected); Phencyclidine Screen,Urine Not Detected (NotDetected); Tricyclic Antidepressant,Urine Detected (NotDetected); Urn Cannabinoid Scrn Not Detected (NotDetected)
--- NOTE | 2018-06-24 19:55 | P.CNNES ---
History of Present Illness Consult date: 06/24/18 History of Present Illness: The patient is a 52-year-old white female with complaints of left facial heaviness since noon today. States she feels as if her left face is drooping and numb. She reports that she went to donate plasma last Sunday and the nurse noticed that her left face was droopy. The patient herself was unaware of it but did not pay much attention until today when she felt that her left face was heavy. She states that sometimes when she drinks fluids she has difficulty and her left lip sometimes crawls up. She feels as if her left eyelid is droopy at times. She reports also that her feet feel heavy for the last few days. She had a CAT scan of the brain which was unremarkable. The patient was started on antiplatelet therapy and states admitted with possible TIA. Review of Systems Constitutional: Denies chills, Denies fever Eyes: denies blurred vision, denies pain Ears, nose, mouth and throat: Denies headache, Denies sore throat Cardiovascular: Reports as per HPI Respiratory: Denies cough Gastrointestinal: Denies abdominal pain, Denies diarrhea, Denies nausea, Denies vomiting Musculoskeletal: Denies myalgias Neurological: Denies numbness, Denies weakness Psychiatric: Denies anxiety, Denies depression Past Medical History Past Medical History: COPD, GERD/Reflux, Pneumonia Additional Past Medical History / Comment(s): Hx varicose veins, pneumonia and bronchitis 2015, March or April. Hx bilateral carpal tunnel. History of Any Multi-Drug Resistant Organisms: None Reported Past Surgical History: Orthopedic Surgery Additional Past Surgical History / Comment(s): oral surgery carpel tunnel surg Past Anesthesia/Blood Transfusion Reactions: No Reported Reaction Past Psychological History: Anxiety, Depression Smoking Status: Current every day smoker Past Alcohol Use History: None Reported Past Drug Use History: None Reported - Past Family History Brother(s) Family Medical History: Cancer Additional Family Medical History / Comment(s): Skin Cancer Father Family Medical History: Cancer Additional Family Medical History / Comment(s): Prostate Cancer Mother Family Medical History: Diabetes Mellitus Medications and Allergies Home Medications Medication Instructions Recorded Confirmed Type buPROPion SR [Wellbutrin Sr] 150 mg PO BID 01/07/16 06/24/18 History Ibuprofen [Motrin] 800 mg PO Q8H PRN 01/19/16 06/24/18 History PARoxetine [Paxil] 20 mg PO DAILY 08/25/16 06/24/18 History Albuterol Sulfate [Proair Hfa] 1 - 2 puff INHALATION Q6HR PRN 06/24/18 06/24/18 History Loratadine [Claritin] 10 mg PO DAILY 06/24/18 06/24/18 History Pantoprazole Sodium [Protonix] 20 mg PO DAILY 06/24/18 06/24/18 History traMADol HCL [Ultram] 50 mg PO Q4-6H PRN 06/24/18 06/24/18 History traZODone HCL [Desyrel] 50 mg PO HS 06/24/18 06/24/18 History Allergies Allergy/AdvReac Type Severity Reaction Status Date / Time baclofen Allergy Unknown Verified 06/24/18 15:20 captopril Allergy Rash/Hives Verified 06/24/18 15:20 metoprolol Allergy Rash/Hives Verified 06/24/18 15:20 Physical Examination - Vital Signs Vital Signs: Vital Signs Temp Pulse Pulse Resp BP BP Pulse Ox 06/24/18 19:05 97.6 F 95 18 130/71 95 06/24/18 18:40 98 F 78 18 120/73 97 06/24/18 17:40 80 18 119/67 97 06/24/18 16:50 83 18 125/71 97 06/24/18 16:00 77 18 108/68 97 06/24/18 15:08 98.5 F 90 18 125/75 97 Intake and Output 06/24/18 06/24/18 06/24/18 06:59 14:59 22:59 Other: Weight 72.6 kg - Constitutional General appearance: average body habitus - EENT EENT: PERRL - Respiratory Respiratory: lungs clear - Cardiovascular Cardiovascular: regular rate - Integumentary Integumentary: normal - Neurologic Cranial nerve examination: PERRL, EOMI, VFF, V1/V2/V3 grossly intact, face symmetric Speech examination: intact Sensorimotor examination: pronator drift Detailed motor examination: grossly full strength in all extremities, other ( Left arm limited examination due to recent shoulder injury) Results - Laboratory Findings CBC and BMP: 06/24/18 15:41 06/24/18 15:41 Abnormal Lab Findings: Abnormal Labs 06/24/18 06/24/1806/24/18 15:41 15:41 18:37 Glucose 108 H Troponin I 0.077 H* Urine Appearance Cloudy H Ur Leukocyte Esterase Moderate H Urine WBC 6 H Hyaline Casts 3 H Urine Mucus Rare H U Tricyclic Antidepress Detected H Assessment and Plan (1) TIA (transient ischemic attack) Current Visit: Yes Status: Acute SNOMED Code(s): 567784435 Plan: The patient is a 52-year-old woman with history of left facial droop. She is admitted to the hospital because of episode of feeling heaviness on the left face. She has been admitted for evaluation of possible TIA. She will have a carotid ultrasound and echocardiogram. She has been started on antiplatelet agent. Recommend MRI scan of the brain.
[2018-06-24] MEDS: buPROPion SR 150 MG TABLET.ER PO SCH (21:57)
[2018-06-24] MEDS: traZODone HCL 50 MG TAB PO SCH (21:57)
[2018-06-24] MEDS: traMADol 50 MG TAB PO PRN (21:57)
[2018-06-24] MEDS: NICOTINE 21MG/24HR PATCH TRANSDERM SCH (23:15)
[2018-06-25] MEDS: traMADol 50 MG TAB PO PRN ×3 (06:02→20:55)
[2018-06-25] MEDS: PANTOPRAZOLE 40 MG TABLET PO SCH (06:03)
[2018-06-25] MEDS: SODIUM CHLORIDE 0.9% 1,000 ML IV SCH ×3 (06:09→14:52)
[2018-06-25 06:32] LABS: Basophils % (A) 1 %; Eosinophils # (A) 0.5 k/uL (0-0.7); Eosinophils % (A) 7 %; HCT 37.7 % (34.0-46.0); HGB 12.3 gm/dL (11.4-16.0); Lymphocytes % (A) 13 %; MCH 28.9 pg (25.0-35.0); MCHC 32.5 g/dL (31.0-37.0); MCV 88.9 fL (80.0-100.0); Mean Platelet Volume 6.6; Monocytes # (A) 0.5 k/uL (0-1.0); Monocytes % (A) 6 %; Neutrophils # (A) 5.6 k/uL (1.3-7.7); Neutrophils % (A) 72 %; Platelet Count 295 k/uL (150-450); RBC 4.24 m/uL (3.80-5.40); WBC 7.7 k/uL (3.8-10.6)
[2018-06-25 06:41] LABS: Anion Gap 4 mmol/L; Blood Urea Nitrogen 15 mg/dL (7-17); Calcium 9.2 mg/dL (8.4-10.2); Carbon Dioxide 28 mmol/L (22-30); Chloride 107 mmol/L (98-107); Cholesterol 211 mg/dL (<200); Glucose 113 mg/dL (74-99); HDL Cholesterol 30 mg/dL (40-60); LDL Cholesterol,Calculated 151 mg/dL (0-99); Potassium 4.2 mmol/L (3.5-5.1); Sodium 139 mmol/L (137-145); Triglycerides 151 mg/dL (<150)
--- NOTE | 2018-06-25 09:04 | MR ---
MR brain without contrast HISTORY: TIA Multiplanar multisequence imaging of the brain. Correlation CT brain 06/24/2018. There is no restricted diffusion. There is no hemorrhage or hydrocephalus. There are normal vascular flow voids. Orbits show a symmetric appearance. Scoliosis, pituitary, cervical medullary junction, ce rebellopontine angles are normal. Cerebral vascular calcifications are present. Mild mucosal thickeni ng present within the maxillary sinuses, ethmoid air cells. Brain signal is unremarkable. IMPRESSION: Mild mucosal disease within the sinuses. Normal brain MRI. No evidence of acute ischemia.
[2018-06-25] MEDS: NICOTINE 21MG/24HR PATCH TRANSDERM SCH ×2 (09:20→23:37)
[2018-06-25] MEDS: ASPIRIN 325 MG TAB PO SCH (09:20)
[2018-06-25] MEDS: LORATADINE 10 MG TAB PO SCH (09:20)
[2018-06-25] MEDS: buPROPion SR 150 MG TABLET.ER PO SCH ×2 (09:20→20:55)
[2018-06-25] MEDS: PARoxetine 20 MG TAB PO SCH (09:20)
--- NOTE | 2018-06-25 10:03 | US ---
EXAMINATION TYPE: US carotid duplex BILAT DATE OF EXAM: 06/25/2018 COMPARISON: NONE CLINICAL HISTORY: stroke. No HTN, left facial droop, no high cholesterol, smoker EXAM MEASUREMENTS: RIGHT: Peak Systolic Velocity (PSV) cm/sec ----- Right CCA: 75.4 ----- Right ICA: 108.2 ----- Right ECA: 58.4 ICA/CCA ratio: 1.4 RIGHT: End Diastole cm/sec ----- Right CCA: 30.3 ----- Right ICA: 52.5 ----- Right ECA: 13.0 LEFT: Peak Systolic Velocity (PSV) cm/sec ----- Left CCA: 78.7 ----- Left ICA: 83.1 ----- Left ECA: 83.4 ICA/CCA ratio: 1.1 LEFT: End Diastole cm/sec ----- Left CCA: 35.8 ----- Left ICA: 42.4 ----- Left ECA: 27.6 VERTEBRALS (direction of flow): Right Vertebral: Antegrade Left Vertebral: Antegrade Rhythm: Normal No wall thickening. No elevated velocities or significant stenosis. Plaque seen in right bulb at pr ox ECA. Grayscale, color Doppler, spectral Doppler imaging performed of the carotid arteries. Waveform analys is does not show significant stenosis of the internal carotid arteries. IMPRESSION: No hemodynamic significant stenosis of the proximal internal carotid arteries bilaterall y by Doppler criteria, an indirect measurement of carotid stenosis
--- NOTE | 2018-06-25 10:36 | CONS ---
CONSULTATION CHIEF COMPLAINT: Left facial numbness. This is a 52-year-old lady with a history of COPD who presented to hospital complaining of left-sided facial weakness, numbness, and droop. She presented to hospital with these symptoms. They came on gradually over a period of 3 days. Did not have any other symptomatology. She did not have chest pain, difficulty in breathing, palpitations, dizziness or syncope. She did not have prior CVAs and did not have any cardiac history. For unclear reasons troponin was done on admission and that came back elevated. Her EKG does not reveal ischemic changes. At the time of my evaluation, she appears comfortable at rest and is free of symptoms. I have been consulted because of elevated troponin. PAST MEDICAL HISTORY: Negative for hypertension, diabetes, dyslipidemia. Patient is allergic to CAPTOPRIL, METOPROLOL, and BACLOFEN. Patient is on Ultram, Desyrel, Wellbutrin, Protonix, Paxil, Claritin, Motrin, and ProAir. FAMILY HISTORY: Negative for premature coronary artery disease. SOCIAL HISTORY: Negative for current smoking, EtOH abuse, or drug abuse. REVIEW OF SYSTEMS: HEENT is significant for facial numbness and droop. CARDIAC: As described above. RESPIRATORY: Negative. GI negative. GENITOURINARY: Negative. MUSCULOSKELETAL: Negative. ENDOCRINE: Negative. DERM: Negative. CONSTITUTIONAL: Negative. ONCOLOGICAL: Negative. Rest of the system review is not relevant. PHYSICAL EXAM: Patient is comfortable at rest. Vital signs are stable. There is jugular venous distention. Carotid upstroke is normal. There is no bruit. Chest exam reveals good air entry bilaterally. Heart exam reveals first and second heart sounds. No gallop. No murmur. No rub. Abdomen is soft, nontender. Exam of extremities did not reveal any edema. Peripheral pulses are felt. EKG appears normal. Hemoglobin is normal. Creatinine is normal. Troponin is 0.07. Her CPK is normal. LDL cholesterol is elevated at 150 and HDL is 30. ASSESSMENT: 1. Left facial numbness suggestive of transient ischemic attack. 2. Elevated troponin of unclear clinical significance. PLAN: I am going to obtain two more sets of troponins. Obtain an echocardiogram to assess LV function and wall motion. Follow the MRI. MRA of the brain and carotid duplex study. I will start her on a statin. Continue the aspirin and I will decide on further course of action based on how all these tests plan out. If necessary, I will perform a transesophageal echo. If the troponin comes back significantly elevated, we might have to evaluate for ischemic heart disease. MMODL / IJN: [id number] /
--- NOTE | 2018-06-25 11:51 | ECHOF ---
Referral Reason:Stroke MEASUREMENTS -------- HEIGHT: 157.5 cm WEIGHT: 74.4 kg BP: 126/69 IVSd: 1.1 cm (0.6 - 1.1) LVIDd: 3.9 cm (3.9 - 5.3) LVPWd: 0.8 cm (0.6 - 1.1) IVSs: 1.2 cm LVIDs: 3.6 cm LVPWs: 1.0 cm LA Diam: 4.0 cm (2.7 - 3.8) LAESV Index (A-L): 26.36 ml/m Ao Diam: 2.7 cm (2.0 - 3.7) AV Cusp: 1.6 cm (1.5 - 2.6) LA Diam: 2.5 cm (2.7 - 3.8) MV EXCURSION: 19.132 mm (> 18.000) MV EF SLOPE: 107 mm/s (70 - 150) EPSS: 0.9 cm MV E Gopi: 0.71 m/s MV DecT: 263 ms MV A Gopi: 0.79 m/s MV E/A Ratio: 0.90 RAP: 5.00 mmHg RVSP: 15.84 mmHg FINDINGS -------- Sinus rhythm. This was a technically adequate study. LV size, wall thickness and systolic function are normal, with an EF greater than 55%. The left morris tricular size is normal. The right ventricle is normal in size. The left atrial size is normal. The right atrial size is normal. The aortic valve is trileaflet, and appears structurally normal. No aortic stenosis or regurgitation. Mild mitral annular calcification present. Mild mitral regurgitation is present. Mild tricuspid regurgitation present. There is no evidence of pulmonary hypertension. The right v entricular systolic pressure, as measured by Doppler, is 15.84mmHg. There is no pulmonic regurgitation present. The aortic root size is normal. There is no pericardial effusion. CONCLUSIONS -------- 1. LV size, wall thickness and systolic function are normal, with an EF greater than 55%. 2. The left ventricular size is normal. 3. The right ventricle is normal in size. 4. The left atrial size is normal. 5. The right atrial size is normal. 6. The aortic valve is trileaflet, and appears structurally normal. No aortic stenosis or regurgitati on. 7. Mild mitral annular calcification present. 8. Mild mitral regurgitation is present. 9. Mild tricuspid regurgitation present. 10. There is no evidence of pulmonary hypertension. 11. The right ventricular systolic pressure, as measured by Doppler, is 15.84mmHg. 12. There is no pulmonic regurgitation present. 13. The aortic root size is normal. 14. There is no pericardial effusion. [employer]: Lotus Stoll RDCS
[2018-06-25] MEDS: ATORVASTATIN 40 MG TAB PO SCH (12:20)
[2018-06-25] MEDS: HEPARIN SODIUM,PORCINE 5,000 UNIT/ML 1 ML VIAL SQ SCH ×2 (12:23→20:55)
--- NOTE | 2018-06-25 12:36 | PN ---
PROGRESS NOTE DATE OF SERVICE: 06/25/2018 This 52-year-old woman was admitted with left heaviness of the face with suspected TIA. The CT scan MRI is within normal limits. However, the troponin is 1 of 0.1. Cardiology evaluate the patient the patient. There is no chest pain per se. A carotid Doppler was also done which showed no significant stenosis of the proximal carotid artery and a 2D echo was also noted. Neurology and Cardiology following the patient closely. A 2D echo showed ejection fraction 42% and mild valvular abnormalities. Cardiology is following this. PAST MEDICAL HISTORY: Reviewed. REVIEW OF SYSTEMS: CARDIOVASCULAR: No angina or palpitations as mentioned respiration no cough GI as mentioned no known systems mentioned earlier. CURRENT MEDICATIONS ARE: 1. Reviewed include Ventolin 2.5 q.6 p.r.n. 2. Xanax 0.5 t.i.d. 3. Aspirin 325 mg daily. 4. Lipitor 40 mg. 5. Lyrica 150 mg b.i.d. 6. Motrin. 7. Claritin 10 mg. 8. Habitrol 14. 9. Protonix 40 mg. 10.Paxil. 11.Restoril 50 mg q.h.s. 12.Ultram 50 mg q.4h p.r.n. 13.Desyrel 50 mg p.o. q.h.s. PHYSICAL EXAM: Patient is alert, oriented x3. blood pressure 130/71, respirations 16, temperature 97.6, pulse ox 98% on room air skin atenolol mucosa moist neck is no jugular venous distention. No lymph nodes cardiac number suspicion the bases no rhonchi no crackles. ABDOMEN: Soft, nontender. No mass palpable legs no edema no swelling. NERVOUS SYSTEM: Higher functions as mentioned. focal motor or sensory deficits. SKIN: No ulcer, rash or bleeding. LABS: CBC BMP within normal limits. Glucose 113 and troponin 0.10 and triglycerides 151+ was 211 and LDL is 151. Assessment and UA noted. 1. Acute TIA involving the right hemisphere with weakness of the left side of the face. 2. Troponin 0.101. Possible acute rule out acute non ST elevation myocardial infarction. 3. Chronic obstructive pulmonary disease. 4. Gastroesophageal reflux disease. 5. Hyperlipidemia. 6. History pneumonia history of bronchitis hysteroscopic mentioned history of anxiety, depression. 7. History of nicotine dependence. RECOMMENDATION: This is a 52-year-old woman who presented with multiple counseling monitor the patient closely continue the current management and complete neurovascular workup. Cardiology following the patient closely for cardiac workup as well including a COTY. Overall prognosis guarded because of multiple complex medical issues. Currently, I would recommend continue the antiplatelet agents and Lipitor, aspirin, and smoking cessation. DVT prophylaxis. Prognosis guarded because of multiple complex medical issues. Further recommendations to follow. MMODL / IJN: [id number] /
[2018-06-25] MEDS: traZODone HCL 50 MG TAB PO SCH (20:57)
[2018-06-25 21:10] VITALS: RESP 18
--- NOTE | 2018-06-25 21:17 | P.PN ---
Subjective Progress Note Date: 06/25/18 The patient is a 52-year-old woman who presented to the hospital with left facial heaviness. She is feeling much better today. She does have a slightly more prominent left ptosis today she states that the left eyelid droop has been present for over 5 years. This comes and goes depending on how tired she is. She states she is feeling back to her baseline. She had an MRI of the brain today which was unremarkable undergoing further further cardiac evaluation due to elevated troponins Objective - Vital Signs Vital signs: Vital Signs Temp 97.5 F L 06/25/18 20:00 Pulse 67 06/25/18 20:00 Resp 18 06/25/18 20:00 BP 122/87 06/25/18 20:00 Pulse Ox 95 06/25/18 20:00 Intake & Output 06/25/18 06/25/18 06/26/18 06:59 18:59 06:59 Intake Total 990 10 Output Total 800 800 Balance 190 -790 Weight 74.5 kg 74.5 kg Intake: IV 30 10 Invasive Line 1 30 10 Oral 960 Output: Urine 800 800 - Constitutional General appearance: Present: cooperative - Respiratory Respiratory: bilateral: CTA - Cardiovascular Rhythm: regular - Neurologic Neurologic: Present: CNII-XII intact (There is a mild left ptosis she states is old) - Musculoskeletal Musculoskeletal: Present: strength equal bilaterally - Psychiatric Psychiatric: Present: A&O x's 3 - Labs CBC & Chem 7: 06/25/18 05:57 06/25/18 05:57 Labs: Abnormal Lab Results - Last 24 Hours (Table) 06/25/18 06/25/18 06/25/18 Range/Units 05:57 05:57 14:18 Glucose 113 H (74-99) mg/dL Troponin I 0.101 H* 0.071 H* (0.000-0.034) ng/mL Triglycerides 151 H (<150) mg/dL Cholesterol 211 H (<200) mg/dL LDL Cholesterol, Calc 151 H (0-99) mg/dL HDL Cholesterol 30 L (40-60) mg/dL Assessment and Plan (1) TIA (transient ischemic attack) Current Visit: Yes Status: Acute SNOMED Code(s): 643546278 Plan: The patient is a 52-year-old woman with history of left facial heaviness and droop. She states she is doing better today. Her neurologic exam demonstrates some mild left ptosis which she states is old and she has had it for over 5 years which comes and goes. Her MRI is negative. Commend continue aspirin daily for stroke prophylaxis. Today and is undergoing further testing by cardiology and may be having a COTY
[2018-06-26] MEDS: PANTOPRAZOLE 40 MG TABLET PO SCH (06:52)
[2018-06-26] MEDS: SODIUM CHLORIDE 0.9% 1,000 ML IV SCH ×2 (06:53→12:03)
[2018-06-26 07:19] LABS: Basophils % (A) 0 %; Eosinophils # (A) 0.4 k/uL (0-0.7); Eosinophils % (A) 7 %; HCT 33.9 % (34.0-46.0); HGB 11.3 gm/dL (11.4-16.0); Lymphocytes % (A) 16 %; MCH 29.3 pg (25.0-35.0); MCHC 33.3 g/dL (31.0-37.0); Mean Platelet Volume 6.7; Monocytes # (A) 0.4 k/uL (0-1.0); Monocytes % (A) 7 %; Neutrophils # (A) 4.4 k/uL (1.3-7.7); Neutrophils % (A) 70 %; Platelet Count 256 k/uL (150-450); RBC 3.86 m/uL (3.80-5.40); RDW 13.8 % (11.5-15.5); WBC 6.3 k/uL (3.8-10.6)
[2018-06-26 07:29] LABS: Anion Gap 8 mmol/L; Blood Urea Nitrogen 17 mg/dL (7-17); Calcium 8.7 mg/dL (8.4-10.2); Carbon Dioxide 23 mmol/L (22-30); Chloride 110 mmol/L (98-107); Glucose 103 mg/dL (74-99); Potassium 4.3 mmol/L (3.5-5.1); Sodium 141 mmol/L (137-145)
[2018-06-26] MEDS: buPROPion SR 150 MG TABLET.ER PO SCH (08:57)
[2018-06-26] MEDS: traMADol 50 MG TAB PO PRN ×2 (08:58→13:49)
[2018-06-26] MEDS: HEPARIN SODIUM,PORCINE 5,000 UNIT/ML 1 ML VIAL SQ SCH (08:58)
[2018-06-26] MEDS: NICOTINE 21MG/24HR PATCH TRANSDERM SCH (08:58)
[2018-06-26] MEDS: ASPIRIN 325 MG TAB PO SCH (08:58)
[2018-06-26] MEDS: LORATADINE 10 MG TAB PO SCH (08:58)
[2018-06-26] MEDS: ATORVASTATIN 40 MG TAB PO SCH (08:58)
[2018-06-26] MEDS: PARoxetine 20 MG TAB PO SCH (08:58)
[2018-06-26 09:07] VITALS: BP 124/60; PULSE 83; TEMP 97.6
--- NOTE | 2018-06-26 12:50 | P.PN ---
Subjective Progress Note Date: 06/26/18 This is a pleasant 52-year-old female with history of COPD who presented to the hospital with symptoms of left-sided facial numbness, with no other associated symptoms. Patient was seen in consultation by Dr. De yesterday. Symptoms today have completely resolved. Blood pressure 124/60 with a heart rate in the 80s, 96% on room air. White blood cell count 6.3, hemoglobin 11.3, platelet count 256. Sodium 141, potassium 4.3, BUN 17, creatinine 0.8. MRI of the brain normal. No evidence of acute ischemia. Carotid Doppler study did not reveal any hemodynamically significant stenosis. Echocardiogram with Doppler study was performed which revealed a normal ejection fraction. Troponins 0.07, 0.101, 0.07. Cholesterol 211, LDL 151, HDL 30, and triglycerides 151. From cardiology's perspective, patient may be able to be discharged home today. As an outpatient we will consider proceeding with a stress test. Objective - Vital Signs Vital signs: Vital Signs Temp 97.6 F 06/26/18 09:03 Pulse 83 06/26/18 09:03 Resp 18 06/26/18 09:03 BP 124/60 06/26/18 09:03 Pulse Ox 96 06/26/18 09:03 Intake & Output 06/25/18 06/26/18 06/26/18 18:59 06:59 18:59 Intake Total 990 30 250 Output Total 800 1600 Balance 190 -1570 250 Weight 75 kg Intake: IV 30 30 10 Invasive Line 1 30 30 10 Oral 960 240 Output: Urine 800 1600 Other: # Voids 1 1 - Exam PHYSICAL EXAMINATION: GENERAL: 52-year-old female in no acute distress at the time of my examination HEENT: Head is atraumatic, normocephalic. Pupils equal, round. Sclera anicteric. Conjunctiva are clear. Mucous membranes of the mouth are moist. Neck is supple. There is no elevated jugular venous pressure. No carotid bruit is heard. HEART EXAMINATION: Heart S1, S2 normal. No murmur or gallop heard. CHEST EXAMINATION: Lungs are clear to auscultation and precussion. No chest wall tenderness is noted on palpation or with deep breathing. ABDOMEN: Soft, nontender. Bowel sounds are heard. No organomegaly noted. EXTREMITIES: 2+ peripheral pulses with no evidence of peripheral edema and no calf tenderness noted. NEUROLOGIC patient is awake, alert and oriented ?-3. . - Labs CBC & Chem 7: 06/26/18 06:39 06/26/18 06:39 Labs: Abnormal Lab Results - Last 24 Hours (Table) 06/25/18 06/26/18 06/26/18 Range/Units 14:18 06:39 06:39 Hgb 11.3 L (11.4-16.0) gm/dL Hct 33.9 L (34.0-46.0) % Chloride 110 H (98-107) mmol/L Glucose 103 H (74-99) mg/dL Troponin I 0.071 H* (0.000-0.034) ng/mL Assessment and Plan Plan: Assessment and plan #1 Symptoms of left-sided facial numbness, possible TIA. MRI of the brain negative. Carotid Doppler study did not reveal any significant obstructive disease. #2 abnormal troponin, exact etiology unclear. Not suggestive of acute coronary syndrome. Echo revealed a normal left ventricular systolic function. Plan Cardiology's perspective, patient may be able to be discharged home. We will schedule her for an outpatient stress test and a follow-up appointment in the office. DNP note has been reviewed, I agree with a documented findings and plan of care. Patient was seen and examined.
--- NOTE | 2018-06-26 12:55 | DS ---
DISCHARGE SUMMARY FINAL DIAGNOSES: 1. Acute transient ischemic attack involving the right hemisphere possibly with weakness of the left side of the face, improved. 2. Troponin 0.101. Rule out possible acute non ST-segment elevation myocardial infarction. 3. Chronic obstructive pulmonary disease. 4. Gastroesophageal reflux disease. 5. Hyperlipidemia. 6. History of pneumonia. 7. History of bronchitis. 8. History of anxiety, depression. 9. History of nicotine dependence. DISCHARGE DISPOSITION: The patient will be discharged in stable condition with guarded prognosis. The patient is keen on going home at this time. Discharge cleared by Cardiology and Neurology. HISTORY OF PRESENT ILLNESS: This 52-year-old woman with a past medical history of multiple medical problems, was admitted with features of acute TIA. The patient also had a troponin 0.101, but there was no chest pain. Cardiology saw the patient and recommended outpatient evaluation. The patient will be discharged in a stable condition with guarded prognosis after clearance from Cardiology and Neurology. On exam, vital signs are stable. CARDIOVASCULAR: S1, S2 muffled. ABDOMEN: Soft. NERVOUS SYSTEM: No focal deficits. DISCHARGE ADVICE: 1. Diet is cardiac. 2. Activity limited until followup. 3. Low fat diet. 4. Follow up with Dr. Blackman in 2 to 3 days. 5. Follow up with Dr. Haylee Ma as advised. 6. Follow up with Dr. Shazia De as advised. The medications are: 1. ProAir HFA 1 to 2 puffs q.6 p.r.n. 2. Wellbutrin SR 150 mg p.o. b.i.d. 3. Motrin 800 mg q.8 p.r.n. 4. Claritin 10 mg p.o. daily. 5. Protonix 20 mg p.o. daily. 6. Paxil 20 mg p.o. daily. 7. Ultram 50 mg q.4 to 6 p.r.n. 8. Desyrel 50 mg q.h.s. 9. Aspirin 325 mg p.o. daily. 10.Lipitor 40 mg daily. 11.Habitrol 21 daily. MMKULDIPL / FLORENTINN: [id number] /
== END 2018-06-26 14:15 | disposition home or self-care (01) ==
LOC: EC 15:02 → 6SEL 17:20 → INTOOBSV 17:20 → 6SEL 18:06 → UNDODISIN 06-26 14:15
PROVIDERS: ADMIT Hospitalist; ATTEND Hospitalist
DX: G45.9 Transient cerebral ischemic attack, unspecified (principal); R74.8 Abnormal levels of other serum enzymes; J44.9 Chronic obstructive pulmonary disease, unspecified; K21.9 Gastro-esophageal reflux disease without esophagitis; E78.5 Hyperlipidemia, unspecified; Z87.01 Personal history of pneumonia (recurrent); Z87.09 Personal history of other diseases of the respiratory system; F41.9 Anxiety disorder, unspecified; F32.9 Major depressive disorder, single episode, unspecified; M19.90 Unspecified osteoarthritis, unspecified site; Z79.899 Other long term (current) drug therapy; Z79.891 Long term (current) use of opiate analgesic; Z88.8 Allergy status to other drugs, medicaments and biological substances; F17.200 Nicotine dependence, unspecified, uncomplicated; Z80.8 Family history of malignant neoplasm of other organs or systems; Z83.3 Family history of diabetes mellitus; Z80.42 Family history of malignant neoplasm of prostate
CPT/HCPCS: 96361 ×4; 96372 ×2; 96360; 99285; 36415; 93005; 93306; 97161; 97165; 92523; 80061; 80053; 80048 ×2; 82550; 82553; 84484 ×2; 85025 ×3; 85610; 85730; 81001; 80306; 93880; 70450; 70551; G0378 ×3; S4990 ×3; J1644 ×2; S0106 ×3

== ENCOUNTER 2019-06-02 14:37 | Emergency (ER) | payer BC ==
[2019-06-02 14:46] VITALS: RESP 18
[2019-06-02] MEDS ORDERED: SODIUM CHLORIDE 0.9% 1,000 ML IV ONE (15:03)
[2019-06-02 15:19] LABS: Basophils % (A) 1 %; Eosinophils # (A) 0.2 k/uL (0-0.7); Eosinophils % (A) 4 %; HCT 44.5 % (34.0-46.0); HGB 14.8 gm/dL (11.4-16.0); Lymphocytes % (A) 19 %; MCH 29.9 pg (25.0-35.0); MCHC 33.2 g/dL (31.0-37.0); Mean Platelet Volume 6.7; Monocytes # (A) 0.2 k/uL (0-1.0); Monocytes % (A) 4 %; Neutrophils # (A) 3.9 k/uL (1.3-7.7); Neutrophils % (A) 72 %; Platelet Count 211 k/uL (150-450); RBC 4.95 m/uL (3.80-5.40); RDW 14.9 % (11.5-15.5); WBC 5.4 k/uL (3.8-10.6)
--- NOTE | 2019-06-02 15:26 | XR ---
EXAMINATION TYPE: XR chest 2V DATE OF EXAM: 06/02/2019 COMPARISON: Chest x-ray January 19, 2016 HISTORY: Chest pain with elevated heart rate TECHNIQUE: Frontal and lateral views of the chest are obtained. FINDINGS: Overlying EKG leads are now seen. There is no focal air space opacity, pleural effusion, o r pneumothorax seen. The cardiac silhouette size remains within normal limits. The osseous structu res are intact. IMPRESSION: No acute cardiopulmonary process. No significant change from prior.
[2019-06-02 15:28] LABS: ALT 42 U/L (9-52); AST 53 U/L (14-36); African American GFR (CKD) >90 (>60 ml/min/1.73 sqM); Albumin 4.1 g/dL (3.5-5.0); Alkaline Phosphatase 108 U/L (38-126); Anion Gap 13 mmol/L; Blood Urea Nitrogen 16 mg/dL (7-17); Calcium 8.6 mg/dL (8.4-10.2); Carbon Dioxide 22 mmol/L (22-30); Chloride 111 mmol/L (98-107); Glucose 133 mg/dL (74-99); Potassium 3.2 mmol/L (3.5-5.1); Sodium 146 mmol/L (137-145); Total Bilirubin 0.5 mg/dL (0.2-1.3); Total Protein 6.6 g/dL (6.3-8.2)
[2019-06-02 15:36] LABS: Alcohol 105 mg/dL
--- NOTE | 2019-06-02 15:48 | ED ---
General Adult HPI - General Chief complaint: Alcohol Stated complaint: Chest pain Time Seen by Provider: 06/02/19 14:40 Source: patient, EMS, RN notes reviewed Mode of arrival: EMS Limitations: no limitations - History of Present Illness Initial comments: This is a 53-year-old who presents to the emergency department complaining that she has been vomiting since yesterday when she stopped drinking. Patient states she thinks his been approximate 24 hours since she had a drink. Patient states she's been drinking heavily since January prior to that she had a 3-1/2 year of sobriety. Patient states she has no pain however she did complain of chest pain when she was vomiting but is since she stopped vomiting she no longer had any pain. Patient denies any chest pain or difficulty breathing currently she denies any abdominal pain. Patient states she is mildly nauseated but she did get Zofran and it has helped quite a bit. Patient denies any injury or trauma. - Related Data Home Medications Medication Instructions Recorded Confirmed PARoxetine [Paxil] 20 mg PO DAILY 08/25/16 06/02/19 Diclofenac Sodium [Voltaren] 75 mg PO DAILY 06/02/19 06/02/19 Pantoprazole Sodium [Protonix] 40 mg PO BID 06/02/19 06/02/19 Allergies Allergy/AdvReac Type Severity Reaction Status Date / Time baclofen Allergy Unknown Verified 06/02/19 16:22 captopril Allergy Rash/Hives Verified 06/02/19 16:22 metoprolol Allergy Rash/Hives Verified 06/02/19 16:22 Review of Systems ROS Statement: Those systems with pertinent positive or pertinent negative responses have been documented in the HPI. ROS Other: All systems not noted in ROS Statement are negative. Past Medical History Past Medical History: COPD, GERD/Reflux, Osteoarthritis (OA), Pneumonia Additional Past Medical History / Comment(s): Hx varicose veins, pneumonia and bronchitis 2015, March or April. Hx bilateral carpal tunnel."has a shoulder and torn ac", occ constipation, stress incont of urine wears a pad."bulging disc lowewr back" alcoholism History of Any Multi-Drug Resistant Organisms: None Reported Past Surgical History: Orthopedic Surgery Additional Past Surgical History / Comment(s): oral surgery-tooth extraction, antonio carpal tunnel release. Past Anesthesia/Blood Transfusion Reactions: No Reported Reaction Past Psychological History: Anxiety, Depression Smoking Status: Current every day smoker Past Alcohol Use History: Abuse, Daily Past Drug Use History: None Reported - Past Family History Brother(s) Family Medical History: Cancer Additional Family Medical History / Comment(s): Skin Cancer Father Family Medical History: Cancer Additional Family Medical History / Comment(s): Prostate Cancer Mother Family Medical History: Diabetes Mellitus General Exam - General Exam Comments Initial Comments: GENERAL: Patient is well-developed and well-nourished. Patient is nontoxic and well- hydrated and is in mild distress. ENT: Neck is soft and supple. No significant lymphadenopathy is noted. Oropharynx is clear. Moist mucous membranes. Neck has full range of motion without eliciting any pain. EYES: The sclera were anicteric and conjunctiva were pink and moist. Extraocular movements were intact and pupils were equal round and reactive to light. Eyelids were unremarkable. PULMONARY: Unlabored respirations. Good breath sounds bilaterally. No audible rales rhonchi or wheezing was noted. CARDIOVASCULAR: There is a regular rate and rhythm without any murmurs gallops or rubs. ABDOMEN: Soft and nontender with normal bowel sounds. No palpable organomegaly was noted. There is no palpable pulsatile mass. SKIN: Skin is clear with no lesions or rashes and otherwise unremarkable. NEUROLOGIC: Patient is alert and oriented x3. Cranial nerves II through XII are grossly intact. Motor and sensory are also intact. Normal speech, volume and content. Symmetrical smile. MUSCULOSKELETAL: Normal extremities with adequate strength and full range of motion. LYMPHATICS: No significant lymphadenopathy is noted PSYCHIATRIC: Normal psychiatric evaluation. Limitations: no limitations Course Vital Signs 06/02/19 06/02/19 14:39 18:33 Pulse Rate 74 92 Respiratory 18 18 Rate Blood Pressure 132/92 162/94 O2 Sat by Pulse 94 L 96 Oximetry Procedures - [facility] Protocol (Time Out) Nurse: Katerina Alvarez Medical Decision Making - Medical Decision Making EKG shows normal sinus rhythm at 74 bpm OR interval is on a 48 QRS is 76 QT interval 384 QTC is 426. EKG shows no ST segment elevation or depression. I will back into the room to reevaluate the patient she stated she had no nausea had no pain she felt as though she wanted to go home. Patient states she will be looking into going to rehabilitation. After patient was discharged she then told the nurse that she's been having suicidal thought. The patient will now be evaluated by the psychiatric team EPS evaluated the patient and determined that the patient was not suicidal and I will back and spoke the patient she agreed she wasn't suicidal she just is afraid she'll drink herself to . Patient states she will look for [facility] to go to. - Lab Data Result diagrams: 06/02/19 15:04 06/02/19 15:04 Lab Results 06/02/19 06/02/19 06/02/19 Range/Units 15:04 15:04 15:04 WBC 5.4 (3.8-10.6) k/uL RBC 4.95 (3.80-5.40) m/uL Hgb 14.8 (11.4-16.0) gm/dL Hct 44.5 (34.0-46.0) % MCV 90.0 (80.0-100.0) fL MCH 29.9 (25.0-35.0) pg MCHC 33.2 (31.0-37.0) g/dL RDW 14.9 (11.5-15.5) % Plt Count 211 (150-450) k/uL Neutrophils % 72 % Lymphocytes % 19 % Monocytes % 4 % Eosinophils % 4 % Basophils % 1 % Neutrophils # 3.9 (1.3-7.7) k/uL Lymphocytes # 1.0 (1.0-4.8) k/uL Monocytes # 0.2 (0-1.0) k/uL Eosinophils # 0.2 (0-0.7) k/uL Basophils # 0.0 (0-0.2) k/uL Sodium 146 H (137-145) mmol/L Potassium 3.2 L (3.5-5.1) mmol/L Chloride 111 H (98-107) mmol/L Carbon Dioxide 22 (22-30) mmol/L Anion Gap 13 mmol/L BUN 16 (7-17) mg/dL Creatinine 0.60 (0.52-1.04) mg/dL Est GFR (CKD-EPI)AfAm >90 (>60 ml/min/1.73 sqM) Est GFR (CKD-EPI)NonAf >90 (>60 ml/min/1.73 sqM) Glucose 133 H (74-99) mg/dL Calcium 8.6 (8.4-10.2) mg/dL Magnesium 2.0 (1.6-2.3) mg/dL Total Bilirubin 0.5 (0.2-1.3) mg/dL AST 53 H (14-36) U/L ALT 42 (9-52) U/L Alkaline Phosphatase 108 (38-126) U/L Troponin I <0.012 (0.000-0.034) ng/mL Total Protein 6.6 (6.3-8.2) g/dL Albumin 4.1 (3.5-5.0) g/dL Serum Alcohol 105 mg/dL Disposition Clinical Impression: Alcoholic intoxication, Vomiting, Hypokalemia Disposition: HOME SELF-CARE Instructions (If sedation given, give patient instructions): Alcohol Intoxication (ED), Acute Nausea and Vomiting (ED) Is patient prescribed a controlled substance at d/c from ED?: No Referrals: Michelle Blackman MD [Primary Care Provider] - 1-2 days Time of Disposition: 16:51
[2019-06-02] MEDS ORDERED: POTASSIUM CHLORIDE ER 20 MEQ TAB.ER PO STA (16:02)
[2019-06-02] MEDS ORDERED: ONDANSETRON 4 MG ODT STARTER PACK 2 TAB BTL PO STA (16:51)
[2019-06-02] MEDS ORDERED: ONDANSETRON 4 MG/2 ML VIAL IVP STA (18:17)
[2019-06-02] MEDS ORDERED: LORazepam 2 MG/ML INJ IV STA (18:17)
[2019-06-02 20:20] VITALS: BP 154/88; PULSE 82; TEMP 98
== END 2019-06-02 20:26 | disposition home or self-care (01) ==
LOC: EC 14:37
DX: F10.129 Alcohol abuse with intoxication, unspecified (principal); E87.6 Hypokalemia; K21.9 Gastro-esophageal reflux disease without esophagitis; F41.9 Anxiety disorder, unspecified; F32.9 Major depressive disorder, single episode, unspecified; F17.200 Nicotine dependence, unspecified, uncomplicated; Z79.899 Other long term (current) drug therapy; Z88.8 Allergy status to other drugs, medicaments and biological substances
CPT/HCPCS: 36415; 93005; 80053; 83735; 84484; 85025; 80320; 71046; 99285; 96374; 96375; 96361; J2060; J2405; S0119